=== PATIENT | female | born 2000 | race Caucasian/White ===

== ENCOUNTER 2019-03-11 08:05 | Emergency (ER) | payer OTHER ==
[~2019-03-11] VITALS: Ht 165.1 cm; Wt 76.4 kg
[2019-03-11 08:08] VITALS: BP 125/77; TEMP 100.2
[2019-03-11] MEDS ORDERED: VYVANSE50 MG PO (08:38)
[2019-03-11] MEDS ORDERED: CRUTCHES MC (09:14)
[2019-03-11 09:40] VITALS: PULSE 80
== END 2019-03-11 09:40 | disposition home or self-care (01) ==
LOC: COL.ER 08:05
DX: S92.101A Unspecified fracture of right talus, initial encounter for closed fracture (principal); F90.9 Attention-deficit hyperactivity disorder, unspecified type; X50.0XXA Overexertion from strenuous movement or load, initial encounter; Y92.828 Other wilderness area as the place of occurrence of the external cause
CPT/HCPCS: Q4045